=== PATIENT | male | born 2000 | race Two or more races ===

== ENCOUNTER 2024-08-01 14:00 | Emergency (ER) | payer OTHER ==
[~2024-08-01] VITALS: Ht 170.2 cm; Wt 81.6 kg
[2024-08-01] MEDS ORDERED: ORPHENADRINE CITRATE 30 MG/ML AMPUL IM ONE (16:30)
[2024-08-01] MEDS ORDERED: KETOROLAC TROMETHAMINE 60 MG VIAL IM ONE (16:30)
[2024-08-01] MEDS ORDERED: ACETIC ACID W/H10 ML OTIC (16:51)
== END 2024-08-01 17:05 | disposition home or self-care (01) ==
LOC: ER 14:02
DX: G44.209 Tension-type headache, unspecified, not intractable (principal); F41.0 Panic disorder [episodic paroxysmal anxiety]

== ENCOUNTER 2024-08-02 06:47 | Emergency (ER) | payer OTHER ==
[~2024-08-02] VITALS: Ht 170.2 cm; Wt 81.6 kg
[~2024-08-02 06:47] MED LIST: ACETIC ACID W/H10 ML OTIC
== END 2024-08-02 09:26 | disposition home or self-care (01) ==
LOC: ER 06:49
DX: H61.22 Impacted cerumen, left ear (principal)

== ENCOUNTER 2024-08-07 14:18 | Emergency (ER) | payer OTHER ==
[~2024-08-07] VITALS: Ht 170.2 cm; Wt 82.6 kg
[2024-08-07] MEDS ORDERED: KETOROLAC TROMETHAMINE 60 MG VIAL IM ONE (18:00)
[2024-08-07 18:11] LABS: HEMATOCRIT 43.8 % (39.0-48.0); HEMOGLOBIN 14.9 g/dL (13-16.00); MEAN CELL VOLUME 91.4 fL (80.0-100.00); MEAN CORPUSCULAR HEMOGLOBIN 31.1 pg (27.00-32.0); MEAN CORPUSCULAR HGB CONC 34.1 g/dl (32.0-36.0); PLATELET COUNT 297 K/uL (150-450); RED BLOOD COUNT 4.79 M/uL (4.00-6.00); RED CELL DISTRIBUTION WIDTH 12.9 % (11.5-14.5)
== END 2024-08-07 19:12 | disposition home or self-care (01) ==
LOC: ER 14:19
PROVIDERS: Preventive Medicine Public Health & General Preventive Medicine
DX: H66.92 Otitis media, unspecified, left ear (principal)

== ENCOUNTER 2024-08-22 08:20 | Emergency (ER) | payer OTHER ==
[~2024-08-22] VITALS: Ht 170.2 cm; Wt 80.7 kg
[2024-08-22] MEDS ORDERED: DEXAMETHASONE SODIUM PHOSPHATE 4 MG/ML VIAL IM STA (10:29)
[2024-08-22] MEDS ORDERED: LIPO-FLAVONOID1 EACH PO (10:40)
== END 2024-08-22 10:56 | disposition home or self-care (01) ==
LOC: ER 08:22
DX: H93.12 Tinnitus, left ear (principal)